=== PATIENT | female | born 1930 | race Caucasian/White ===

== ENCOUNTER → 2017-04-13 | Outpatient (CLI) | payer MEDICARE ==
[~2017-04-13] MED LIST: ACYCLOVIR800 MG; AMLODIPINE BESY10 MG; IOPAMIDOL 370 MG/ML 200 ML INFUS..BTL INJ ONE; METOPROLOL SUCC25 MG; SLOW FE160 MG PO; SODIUM CHLORIDE 0.9% 50ML 50 ML ONE; Z.0.ASPIR 8181 MG PO; Z.0.LOSARTAN POTAS10 PO; Z.0.OMEPRAZOLE40 MG PO
[2017-04-13 11:38] LABS: BLOOD UREA NITROGEN 15 mg/dL (7-26); BUN/CREATININE RATIO 19 (6-25); CREATININE, SERUM 0.79 mg/dL (0.57-1.11); EST GLOMERULAR FILTRATION RATE > 60 ML/MIN (60-)
--- NOTE | 2017-04-13 13:13 | Diagnostic Imaging Report ---
PROCEDURE: CT ABDOMEN AND PELVIS WITH CONTRAST TECHNIQUE: The abdomen and pelvis were scanned utilizing a multidetector helical scanner from the diaphragm to the lesser trochanter after the IV administration of 100 cc of Isovue 370 and the oral administration of water. Coronal and sagittal multiplanar reformations were obtained. COMPARISON: Renal ultrasound 02/06/2009. INDICATIONS: UPPER ADB PAIN FINDINGS: LOWER THORAX: Trace groundglass opacities in the dependent portions of lower lobes compatible with subsegmental atelectasis.. HEPATOBILIARY: Subcentimeter hypoattenuating lesion in hepatic segment 2, too small to further characterize though likely to represent a small cyst. No additional focal hepatic lesion. No intrahepatic biliary ductal dilatation. The gallbladder is unremarkable. SPLEEN: No splenomegaly or focal splenic lesion. PANCREAS: No focal masses or ductal dilatation. ADRENALS: No adrenal nodules. KIDNEYS/URETERS: Subcentimeter hypoattenuating lesion in the lower pole of the left kidney is too small to further characterize but may represent small cysts. No solid renal mass lesion. No hydronephrosis or calculus. PELVIC ORGANS/BLADDER: Evaluation of the pelvic organs is markedly limited secondary to extensive beam hardening artifact from bilateral hip prosthesis. PERITONEUM / RETROPERITONEUM: No ascites or pneumoperitoneum the upper abdomen. Evaluation for pelvic fluid is limited. LYMPH NODES: no retroperitoneal or mesenteric lymphadenopathy. VESSELS: Extensive calcified and noncalcified atherosclerotic plaque of the abdominal aorta and branch vessel origins, without significant stenosis. No abdominal aortic aneurysm. Portal vein, splenic vein, and the central superior mesenteric vein are patent. GI TRACT: Multiple descending and sigmoid colon diverticula, without evidence of diverticulitis. The appendix is not definitively identified. No right lower quadrant inflammatory change. No small bowel dilatation to suggest obstruction. BONES AND SOFT TISSUES: A small fat containing umbilical hernia; otherwise no focal soft tissue abnormalities. Bilateral total hip arthroplasty with satisfactory position of surgical hardware. The bones are diffusely osteopenic. No acute fractures. Multilevel degenerative disc changes and facet arthropathy of the lower thoracic and lumbar spine. IMPRESSION: No acute intra-abdominal or pelvic CT abnormalities. Large bowel diverticulosis without evidence of diverticulitis. Atherosclerotic vascular disease. Dictated by: Carlos Malone M.D. on 04/13/2017 at 13:14 Electronically approved by: Carlos Malone M.D. on 04/13/2017 at 13:14
== END ==
LOC: CT 10:43
PROVIDERS: ATTEND Family Medicine
DX: R10.9 Unspecified abdominal pain (principal); K57.90 Diverticulosis of intestine, part unspecified, without perforation or abscess without bleeding
CPT/HCPCS: 36415; 74177; 82565; 84520; Q9967